=== PATIENT | female | born 1990 | race Caucasian/White ===

== ENCOUNTER 2023-09-14 15:04 | Emergency (ER) | payer OTHER ==
[~2023-09-14] VITALS: Ht 157.5 cm; Wt 49.9 kg
[2023-09-14 16:06] VITALS: BP 110/70; TEMP 98.6; O2SAT 99
== END 2023-09-14 16:06 | disposition home or self-care (01) ==
LOC: ER 15:20
DX: F10.10 Alcohol abuse, uncomplicated (principal); Z88.0 Allergy status to penicillin; Z88.2 Allergy status to sulfonamides; Y90.9 Presence of alcohol in blood, level not specified